=== PATIENT | male | born 1955 | race Caucasian/White ===

== ENCOUNTER → 2024-05-28 | Outpatient (CLI) | payer MEDICARE, OTHER | LOC: M WHC 12:55 | PROVIDERS: ATTEND Internal Medicine | DX: R22.32 Localized swelling, mass and lump, left upper limb (principal) ==

== ENCOUNTER → 2024-07-16 | Outpatient (CLI) | payer MEDICARE, OTHER ==
[2024-07-16 09:14] LABS: IRON (FE) 148 UG/DL (65-175); PERCENT SATURATION 43.9 % (19.7-50.0); TOTAL IRON BINDING CAPACITY 337 UG/DL (250-425)
[2024-07-16 09:16] LABS: HEPATITIS B SURFACE ANTIBODY NEGATIVE (POSITIVE)
[2024-07-16 09:17] LABS: FERRITIN 463.2 NG/ML (10.5-307.3)
[2024-07-16 09:30] LABS: HEPATITIS B SURFACE ANTIGEN NEGATIVE (NEGATIVE)
[2024-07-16 09:50] LABS: HEPATITIS C VIRUS ABY INDEX < 0.02 INDEX (<0.8)
[2024-07-17 08:28] LABS: T P ELECTROPHORESIS SO 6.6 g/dL (6.1-8.1)
[2024-07-17 14:06] LABS: HEPATITIS A IgG TOTAL NON-REACTIVE (NON-REACTIVE); HEPATITIS B CORE ANTIBODY IGG NON-REACTIVE (NON-REACTIVE)
== END ==
LOC: M RAD 07:10
PROVIDERS: ATTEND Internal Medicine Gastroenterology
DX: R79.89 Other specified abnormal findings of blood chemistry (principal); K22.70 Barrett's esophagus without dysplasia